=== PATIENT | female | born 1960 | race Caucasian/White ===

== ENCOUNTER 2016-12-16 13:10 | Emergency (ER) | payer OTHER ==
[2016-12-16 13:17] VITALS: BP 143/65; PULSE 87; TEMP 98.9; BMI 33.9
--- NOTE | 2016-12-16 13:42 | PDOC ---
History of Present Illness - General Chief Complaint: Wound Infection Stated Complaint: left 3 rd finger infection Time Seen by Provider: 12/16/16 13:36 History Source: Patient (Patient walked in complaining of left 3rd finger infection after pulling her cuticles which got progressively worse in the last few days ) Exam Limitations: No Limitations - History of Present Illness Timing/Duration: unsure, getting worse Severity: moderate, severe Associated Symptoms: reports: denies symptoms Past History - Travel Traveled outside of the country in the last 30 days: No Close contact w/someone who was outside of country & ill: No - Past Medical History Allergies/Adverse Reactions: Allergies Allergy/AdvReac Type Severity Reaction Status Date / Time codeine Allergy Vomiting Verified 12/16/16 13:20 Home Medications: Ambulatory Orders Bupropion HCl [Wellbutrin Xl] 300 mg PO DAILY 12/16/16 Cephalexin [Keflex] 500 mg PO TID #20 capsule 12/16/16 Sulfamethoxazole/Trimethoprim [Bactrim Ds -] 1 tab PO BID #14 tablet 12/16/16 Vortioxetine Hydrobromide [Trintellix] 20 mg PO DAILY 12/16/16 Psychiatric Problems: Yes (anxiety) - Suicide/Smoking/Psychosocial Hx Smoking History: Current every day smoker Have you smoked in the past 12 months: No Number of Cigarettes Smoked Daily: 20 Information on smoking cessation initiated: Yes 'Breaking Loose' booklet given: 12/16/16 Hx Alcohol Use: No Drug/Substance Use Hx: No Substance Use Type: None Review of Systems - Review of Systems Able to Perform ROS?: Yes Is the patient limited Albanian proficient: Yes Constitutional: No: Symptoms Reported, See HPI, Chills, Diaphoresis, Fever, Loss of Appetite, Malaise, Night Sweats, Weakness, Weight Stable, Unintentional Wgt. Loss, Unexplained wgt Loss, Other HEENTM: No: Symptoms Reported, See HPI, Eye Pain, Blurred Vision, Tearing, Recent change in vision, Double Vision, Cataracts, Ear Pain, Ocular Prothesis, Ear Discharge, Nose Pain, Nose Congestion, Tinnitus, Nose Bleeding, Hearing Loss , Throat Pain, Throat Swelling, Mouth Pain, Dental Problems, Difficulty Swallowing, Mouth Swelling, Other Respiratory: No: Symptoms reported, See HPI, Cough, Orthopnea, Shortness of Breath, SOB with Exertion, SOB at Rest, Stridor, Wheezing, Productive cough, Hemoptysis, Other Cardiac (ROS): No: Symptoms Reported, See HPI, Chest Pain, Edema, Irregular Heart Rate, Lightheadedness, Palpitations, Syncope, Chest Tightness, Other ABD/GI: No: Symptoms Reported, See HPI, Abdominal Distended, Abd. Pain w/ defecation, Blood Streaked Bowels, Constipated, Diarrhea, Difficulty Swallowing , Nausea, Poor Appetite, Poor Fluid Intake, Rectal Bleeding, Vomiting, Indigestion, Abdominal cramping, Tarry Stools, Other Integumentary: Yes: Symptoms Reported, See HPI, Other (Infected finger, throbbing) All Other Systems: Reviewed and Negative *Physical Exam - Vital Signs Last Vital Signs Temp Pulse Resp BP Pulse Ox 98.9 F 87 18 143/65 97 12/16/16 13:12 12/16/16 13:12 12/16/16 13:12 12/16/16 13:12 12/16/16 13:12 - Physical Exam General Appearance: Yes: Nourished, Appropriately Dressed, Moderate Distress, Obese HEENT: positive: ROX Neck: positive: Supple Cardiovascular: positive: Regular Rate Lymphatic: negative: Adenopathy, Tenderness, Other Musculoskeletal: negative: Normal Inspection, CVA Tenderness, CVA Tenderness (R) , CVA Tenderness (L), Decreased Range of Motion, Muscle Spasm, Vertebral Tenderness, Other Extremity: positive: Normal Capillary Refill (Lesion as described) Integumentary: positive: Normal Color, Dry, Other (Swelling, tenderness, redness , surrounding the left 3rd finger nail, distally up to the finger tip .) 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 Atbc prescribed in the ER and for home. Advised to return to ER if her own PCP, Dr Raman Miller not available for follow up. return if any signs of worsening 12/19/16 11:33 *DC/Admit/Observation/Transfer Diagnosis at time of Disposition: Encounter for incision and drainage procedure - Discharge Dispostion Disposition: HOME Condition at time of disposition: Stable Admit: No - Prescriptions Prescriptions: Sulfamethoxazole/Trimethoprim [Bactrim Ds -] 1 tab PO BID #14 tablet Cephalexin [Keflex] 500 mg PO TID #20 capsule - Referrals Referrals: Ilir Miller [Non Staff, Medical] - - Patient Instructions Printed Discharge Instructions: Smoking Cessation, DI for Wound Infection Additional Instructions: Clean and dry, change dressing 2- 3 days . Follow up with your doctor or return here to ER for wound check up - Post Discharge Activity
[2016-12-16] MEDS ORDERED: LIDOCAINE HCL 2% (20ML MULTI-DOSE VIAL) NR ONE (13:51)
[2016-12-16] MEDS ORDERED: SULFAMETHOXAZOLE/TRIMETHOPRIM 800MG/160MG D.S. TABLET ONE (14:41)
[2016-12-16] MEDS ORDERED: CEPHALEXIN MONOHYDRATE 500 MG CAPSULE (UD) ONE (14:41)
[2016-12-16] MEDS ORDERED: CEPHALEXIN MONOHYDRATE 500 MG CAPSULE (UD) PO ONE (15:12)
[2016-12-16] MEDS ORDERED: SULFAMETHOXAZOLE/TRIMETHOPRIM 800MG/160MG D.S. TABLET PO ONE (15:12)
== END 2016-12-16 15:05 | disposition home or self-care (01) ==
LOC: FER 13:10
DX: L03.012 Cellulitis of left finger (principal); F17.210 Nicotine dependence, cigarettes, uncomplicated; F41.9 Anxiety disorder, unspecified
CPT/HCPCS: 87070; 87186; 87205; 99282-25

== ENCOUNTER 2016-12-19 12:40 | Emergency (ER) | payer OTHER ==
[2016-12-19 12:48] VITALS: BP 157/96; PULSE 89; TEMP 98.7; BMI 34.9
--- NOTE | 2016-12-19 13:20 | PDOC ---
Suture Removal/Wound Check HPI - History of Present Illness Chief Complaint: Wound Stated Complaint: wound check Time Seen by Provider: 12/19/16 12:46 History Source: Yes: Patient Exam Limitations: Yes: No Limitations Treated at: [facility] ED Date of Last ED visit: 12/16/16 - Previous ED Treatment Type of procedure performed on last visit: Yes: I&D of Abscess Antibiotics Prescribed: Yes - Onset of Previous Treatment Comment:: 56 yo F s/p recent I&D for paronychia presents for wound check. She states her finger is still swollen, but has improved significantly. No drainage of pus. She has been dressing it with gauze and bacitracin. Past History - Past Medical History Allergies/Adverse Reactions: Allergies Allergy/AdvReac Type Severity Reaction Status Date / Time codeine Allergy Vomiting Verified 12/19/16 12:41 Home Medications: Ambulatory Orders Bupropion HCl [Wellbutrin Xl] 300 mg PO DAILY 12/16/16 Cephalexin [Keflex] 500 mg PO TID #20 capsule 12/16/16 Sulfamethoxazole/Trimethoprim [Bactrim Ds -] 1 tab PO BID #14 tablet 12/16/16 Vortioxetine Hydrobromide [Trintellix] 20 mg PO DAILY 12/16/16 Psychiatric Problems: Yes (anxiety) - Suicide/Smoking/Psychosocial Hx Smoking History: Current every day smoker Have you smoked in the past 12 months: No Number of Cigarettes Smoked Daily: 20 Information on smoking cessation initiated: Yes 'Breaking Loose' booklet given: 12/19/16 Hx Alcohol Use: No Drug/Substance Use Hx: No Substance Use Type: None Suture Removal/Wound Check PE - Physical Exam Comments: GENERAL: Awake, alert, and fully oriented, in no acute distress EXTREMITIES: Normal range of motion, no edema. No clubbing or cyanosis. No cords , erythema, or tenderness SKIN: Warm, Dry, normal turgor. L 3rd finger with mild swelling, no erythema. + Healing paronychia s/p I&D. *Review of Systems - Review of Systems Able to Perform ROS?: Yes Comments:: GENERAL/CONSTITUTIONAL: No fever or chills. No weakness. MUSCULOSKELETAL: No joint or muscle swelling or pain. No neck or back pain. SKIN: No rash Medical Decision Making - Medical Decision Making Dressing changed. Recommended dry gauze and paper tape. No more bacitracin, to allow the wound to dry out and heal. Continue abx. *DC/Admit/Observation/Transfer Diagnosis at time of Disposition: Wound check, abscess - Discharge Dispostion Disposition: HOME Condition at time of disposition: Stable Admit: No - Referrals Referrals: Ilir Miller [Primary Care Provider] - - Patient Instructions Printed Discharge Instructions: DI for Paronychia Additional Instructions: Apply gauze and tape as directed until the wound is dry, then it is ok to stop. Finish your antibiotics as prescribed. If any redness, worsening pain, swelling or any other concerns, return to the ER.
== END 2016-12-19 13:25 | disposition home or self-care (01) ==
LOC: FER 12:40
DX: Z48.01 Encounter for change or removal of surgical wound dressing (principal)
CPT/HCPCS: 99281-25